=== PATIENT | male | born 1995 | race Caucasian/White ===

== ENCOUNTER 2023-09-13 21:02 | Emergency (ER) | payer OTHER ==
--- NOTE | 2023-09-13 21:18 | ER ---
Nurse's Notes [facility] Name: Deyvi Rasmussen Age: 28 yrs Sex: Male : 1995 Arrival Date: 09/13/2023 Time: 21:02 Bed IW1 Private MD: Diagnosis: Dental caries, unspecified Presentation: 09/12 21:12 Chief complaint: Patient states: dental pain. Coronavirus screen: At this time, the as6 client does not indicate any symptoms associated with coronavirus-19. Ebola Screen: No symptoms or risks identified at this time. Initial Sepsis Screen: Does the patient meet any 2 criteria? No. Patient's initial sepsis screen is negative. Does the patient have a suspected source of infection? No. Patient's initial sepsis screen is negative. Risk Assessment: Do you want to hurt yourself or someone else? Patient reports no desire to harm self or others. Onset of symptoms was September 09, 2023. 21:12 Acuity: SEAN 4 as6 21:12 Method Of Arrival: Ambulatory as6 Triage Assessment: 21:41 Pain: Complains of pain in lower right second molar. EENT: No deficits noted. No signs vc1 and/or symptoms were reported regarding the EENT system. GI: Reports nausea. Historical: - Allergies: 21:13 PENICILLINS; as6 - PMHx: 21:13 None; as6 - PSHx: 21:13 None; as6 - Immunization history:: Adult Immunizations up to date. - Infectious Disease History:: Denies. - Social history:: Smoking status: Patient reports the use of cigarette tobacco products. Screenin:41 [facility] ED Fall Risk Assessment (Adult) History of falling in the last 3 months, vc1 including since admission No falls in past 3 months (0 pts) Confusion or Disorientation No (0 pts) Intoxicated or Sedated No (0 pts) Impaired Gait No (0 pts) Mobility Assist Device Used No (0 pt) Altered Elimination No (0 pt) Score/Fall Risk Level 0 - 2 = Low Risk Oriented to surroundings, Maintained a safe environment, Educated pt \T\ family on fall prevention, incl call for assistance when getting out of bed. Abuse screen: Denies threats or abuse. Nutritional screening: No deficits noted. Tuberculosis screening: No symptoms or risk factors identified. Vital Signs: 21:12 BP 151 / 83; Pulse 59; Resp 18; Temp 97.8; Pulse Ox 100% ; Weight 79.38 kg; Height 6 as6 ft. 2 in. ; Pain 10/10; 21:12 Body Mass Index 22.47 (79.38 kg, 187.96 cm) as6 21:12 Pain Scale: Adult as6 ED Course: 21:05 Patient arrived in ED. rg4 21:07 [facility]ujano [facility] sb4 21:07 Nereida Weeks MD is Attending Physician. sb4 21:13 Triage completed. as6 21:13 Arm band placed on. as6 21:18 Diego Sullivan DDS is Referral Physician. sb4 21:41 No provider procedures requiring assistance completed. Patient did not have IV access vc1 during this emergency room visit. Administered Medications: 21:39 Drug: Clindamycin PO 300 mg PO once Route: PO; vc1 21:40 Follow up: Response: Medication administered at discharge. vc1 21:39 Drug: Ondansetron Oral Disintegrating Tablet Oral Disintegrating Tablet 4 mg PO once vc1 Route: PO; 21:40 Follow up: Response: Medication administered at discharge. vc1 21:39 Drug: Hydrocodone-Acetaminophen PO (7.5 mg-325 mg) 1 tabs PO once Route: PO; vc1 21:39 Follow up: Response: Medication administered at discharge. vc1 Medication: 21:41 VIS not applicable for this client. vc1 Outcome: 21:18 Discharge ordered by . sb4 21:46 Discharged to home ambulatory, with significant other, vc1 21:46 Condition: good 21:46 Discharge instructions given to patient, Instructed on discharge instructions, follow up and referral plans. medication usage, Demonstrated understanding of instructions, follow-up care, medications, Prescriptions given X 3, 21:47 Patient left the ED. vc1 Signatures: Yany Farias rg4 Fabian Laughlin RN RN as6 Courtney Olivo RN RN vc1 Kacie Mandujano PA-C PA-C sb4
--- NOTE | 2023-09-13 21:19 | EDPHYS ---
Physician Documentation [facility] Name: Deyvi Rasmussen Age: 28 yrs Sex: Male : 1995 Arrival Date: 09/13/2023 Time: 21:02 Bed IW1 Private MD: ED Physician Nereida Weeks HPI: 09/12 21:34 This 28 yrs old White Male presents to ER via Ambulatory with complaints of dental sb4 pain, nausea. 21:35 The patient presents with broken tooth/teeth, pain, swelling. The problem is located in sb4 the lower right second molar. Modifying factors: The symptoms are alleviated by nothing, the symptoms are aggravated by nothing. Associated signs and symptoms: Pertinent positives: fever, nausea. The patient has not recently seen a physician. Historical: - Allergies: 21:13 PENICILLINS; as6 - PMHx: 21:13 None; as6 - PSHx: 21:13 None; as6 - Immunization history:: Adult Immunizations up to date. - Infectious Disease History:: Denies. - Social history:: Smoking status: Patient reports the use of cigarette tobacco products. ROS: 21:35 Cardiovascular: Negative for chest pain, palpitations, and edema, sb4 21:35 Constitutional: Positive for fatigue, fever, malaise, 21:35 ENT: Positive for dental pain, 21:35 Abdomen/GI: Positive for nausea, Exam: 21:35 Head/Face: Normocephalic, atraumatic. Eyes: Extra-ocular motions intact. Periorbital sb4 areas with no swelling, redness, or edema. Skin: Warm, dry with normal turgor. Normal color with no rashes, no lesions, and no evidence of cellulitis. 21:35 Constitutional: The patient appears alert, awake, obviously ill, 21:35 ENT: Dental exam: cellulitis, specifically in the lower right second molar, fractured teeth are noted, gum swelling, pain, Vital Signs: 21:12 BP 151 / 83; Pulse 59; Resp 18; Temp 97.8; Pulse Ox 100% ; Weight 79.38 kg; Height 6 as6 ft. 2 in. ; Pain 10/10; 21:12 Body Mass Index 22.47 (79.38 kg, 187.96 cm) as6 21:12 Pain Scale: Adult as6 MDM: 21:13 Patient medically screened. sb4 21:35 Data reviewed: vital signs, nurses notes, and as a result, I will discharge patient. sb4 Counseling: I had a detailed discussion with the patient and/or guardian regarding the historical points, exam findings, and any diagnostic results supporting the discharge/admit diagnosis, the need for outpatient follow up, a dentist, to return to the emergency department if symptoms worsen or persist or if there are any questions or concerns that arise at home. Administered Medications: 21:39 Drug: Clindamycin PO 300 mg PO once Route: PO; vc1 21:40 Follow up: Response: Medication administered at discharge. vc1 21:39 Drug: Ondansetron Oral Disintegrating Tablet Oral Disintegrating Tablet 4 mg PO once vc1 Route: PO; 21:40 Follow up: Response: Medication administered at discharge. vc1 21:39 Drug: Hydrocodone-Acetaminophen PO (7.5 mg-325 mg) 1 tabs PO once Route: PO; vc1 21:39 Follow up: Response: Medication administered at discharge. vc1 Disposition Summary: 09/13/23 21:18 Discharge Ordered Notes: Location: Home sb4 Problem: new sb4 Symptoms: are unchanged sb4 Condition: Stable sb4 Diagnosis - Dental caries, unspecified sb4 Followup: sb4 - With: Diego Sullivan DDS - When: 1 week - Reason: Recheck today's complaints, Re-evaluation by your physician Discharge Instructions: - Discharge Summary Sheet sb4 - Dental Pain, [id number] sb4 Forms: - Antibiotic Education sb4 - Patient Portal Instructions sb4 - Leadership Thank You Letter sb4 Prescriptions: - Clindamycin HCl 150 mg Oral Capsule - take 1 capsule ORAL route every 6 hours for 10 days; 40 capsule; Refills: 0, sb4 Product Selection Permitted - Medrol (Boni) 4 mg Oral Tablets, Dose Pack - take 1 tablet ORAL route as directed - follow package instructions; 1 packet; sb4 Refills: 0, Product Selection Permitted - ondansetron 8 mg Oral Tablet,disintegrating - take 1 tablet ORAL route every 8 hours; 20 tablet; Refills: 0, Product sb4 Selection Permitted Signatures: Fabian Laughlin RN RN as6 Courtney Olivo RN RN vc1 Kacie Mandujano PA-C PA-C sb4
[2023-09-13] MEDS ORDERED: ONDANSETRON 4 MG (ODT) TAB ONE (21:34)
[2023-09-13] MEDS ORDERED: HYDROCODONE/APAP 7.5/325 MG TAB ONE (21:35)
[2023-09-14 00:36] VITALS: BP 151/83; TEMP 97.8; O2SAT 100
== END 2023-09-13 21:47 | disposition home or self-care (01) ==
LOC: ER 21:02
DX: K02.9 Dental caries, unspecified (principal); R50.9 Fever, unspecified; Z72.0 Tobacco use
CPT/HCPCS: 99283; Q0162